=== PATIENT | female | born 1965 | race Caucasian/White ===

== ENCOUNTER 2017-04-27 08:20 | Inpatient (IN) | payer BC ==
[~2017-04-27] VITALS: Ht 152.4 cm; Wt 79.4 kg
[~2017-04-27 08:20] MED LIST: ACET500T68 PO; ASCO500T2 PO; GLUC100018 PO; INSU100I13 SQ; LANS15CA5 PO; LISI-338 PO; METF-620 PO; METF500T4 PO; PIOG15TA42 PO; RANI150C PO; SIMV10TA3 PO
[2017-04-27 08:56] LABS: BASO # 0.1 x10^3/uL (0.0-0.2); BASO % 1 % (0-3); EOS % 1 % (0-3); HEMATOCRIT 31.6 % (36.0-47.0); HEMOGLOBIN 10.4 g/dL (12.0-15.5); LYMPH # 4.3 x10^3/uL (1.0-4.8); LYMPH % 41 % (24-48); MEAN CORPUSCULAR HEMOGLOBIN 20 pg (25-35); MEAN CORPUSCULAR HGB CONC 33 g/dL (31-37); MEAN CORPUSCULAR VOLUME 61 fL (79-100); MONO % 5 % (0-9); NEUT % 53 % (31-73); PLATELET COUNT 309 x10^3/uL (140-400); RED BLOOD COUNT 5.22 x10^6/uL (3.50-5.40); RED CELL DISTRIBUTION WIDTH 15.2 % (11.5-14.5); WHITE BLOOD COUNT 10.7 x10^3/uL (4.0-11.0)
[2017-04-27 08:58] LABS: BILIRUBIN,URINE NEGATIVE (NEG); GLUCOSE,URINE NEGATIVE (NEG); NITRITE,URINE NEGATIVE (NEG); PH,URINE 6.5; PROTEIN,URINE NEGATIVE (NEG-TRACE)
[2017-04-27] MEDS ORDERED: ONDANSETRON PF 4 MG/2 ML VIAL. IV ONE ×2 (09:00→10:30)
[2017-04-27] MEDS ORDERED: fentaNYL PF VIAL 100 MCG/2 ML VIAL IV ONE (09:00)
--- NOTE | 2017-04-27 09:01 | EKG ---
[facility] [address] [place] [address] Test Date: 2017-04-27 Test Time: 08:42:48 Pat Name: SCOOTER AUGUSTIN Department: Room: Gender: F Manager In Home: : 1965 Requested By: BONNIE CASTILLO Order Number: [id number] Reading MD: Measurements Intervals [place] Rate: 61 P: 31 HI: 150 QRS: 47 QRSD: 70 T: 16 QT: 400 QTc: 404 Interpretive Statements SINUS RHYTHM RI6.01 Unconfirmed report No previous ECG available for comparison
[2017-04-27 09:03] LABS: CREATININE 0.9 mg/dL (0.6-1.0); POTASSIUM 4.2 mmol/L (3.5-5.1)
[2017-04-27 09:09] LABS: ALBUMIN 4.2 g/dL (3.4-5.0); ALBUMIN/GLOBULIN RATIO 1.1 (1.0-1.7); TOTAL BILIRUBIN 0.4 mg/dL (0.2-1.0)
[2017-04-27 09:26] LABS: BACTERIA,URINE FEW /HPF (0-FEW); RBC,URINE RARE /HPF (0-2); SQUAMOUS EPITHELIAL CELL,UR FEW /LPF; WBC,URINE OCC /HPF (0-4)
[2017-04-27 10:19] LABS: HYPOCHROMIA MARKED; MICROCYTOSIS MARKED; PLT ESTIMATE ADEQUATE (ADEQUATE)
--- NOTE | 2017-04-27 11:57 | ACF ---
Admit Criteria Forms Admit Criteria Forms Admit Criteria Forms ABDOMINAL PAIN Clinical Indications for Admission to Inpatient Care (Place 'X' for any and all applicable criteria): Admission is indicated for ANY ONE of the following(1)(2)(3)(4)(5): [X]I. Inpatient admission required rather than observation care (Also use Abdominal Pain: Observation Care, as appropriate) because of ANY ONE of the following: [X ]a) Severe pain requiring acute inpatient management [ ]b) Identification of etiology/finding that requires inpatient care (eg, aortic dissection, free air) [ ]c) Absent bowel sounds with complete ileus(6) [ ]d) Suspected toxic megacolon [ ]e) Severe electrolyte abnormalities requiring inpatient care [ ]f) High fever or infection requiring inpatient admission as indicated by ANY ONE of following(7)(8): [ ] i) Appropriate outpatient or observational care antimicrobial treatment unavailable, not effective, or not feasible [ ] ii) Documented bacteremia [ ] iii) Temperature > 104.9 degrees F (oral) [ ] iv) T >103.1 F (oral) or < 96.8 F(rectal) that does not respond to all emergency treatment measures [ ]g) Signs of intestinal obstruction [B] [ ]h) Hemodynamic instability [ ]i) IV fluid to replace significant ongoing losses (greater than 3 L/m2 per day) (12)(13) [ ]j) Percutaneous or open drainage (eg, abscess, biliary tract ) procedures [ ]k) Parenteral nutrition regimen that must be implemented on inpatient basis [ ]l) Other condition,treatment or monitoring requiring inpatient admission. [ ]II. Peritoneal signs present [ ]III. Surgery needed that cannot be performed on an ambulatory basis. [ ]IV. Evaluation requires patient to not eat or drink for extended period ( eg, more than 24 hours). [ ]V. Contraindications and/or Inappropriate clinical situations for Observational Care in patients with abdominal pain, when ANY ONE of the following is required: [ ]a) Thorough evaluation is required to prevent catastrophic events due to delays in diagnosing (e.g.Mesenteric ischemia) 1,3 [ ]b) Patient with severe pathology or with chronic symptoms unlikely to improve in the ED stay (3) [ ]. General contraindications and/or Inappropriate clinical situations for Observational Care in patients with abdominal pain, when ANY ONE of the following is required: [ ]a) Prediction of prolongation of LOS based on ANY ONE of the following may be considered as a contraindication for observational care 2, 3, 4, 5, 6, 7, 8, 9, 10, 11 [ ]i) Age > 65 yrs. [ ]ii) Patient arriving by ambulance [ ]iii) Patient with high acuity [ ]iv) Patient requiring vital sign monitoring [ ]v) Patient on IV medication [ ]b) Systolic blood pressures 180mmHg 3,12 [ ]c) Patient with altered mental status including delirium and other alteration of consciousness, (3) [ ]d) Patient whose discharge disposition will be to a shelter home or rehabilitation home should not be managed in Emergency Department Observation Unit. CMS rule requires 3 days hospital stay before such placement.3,13 [ ]e) Patient with failure to thrive due to broad array of etiologies 3,16,17 [ ]f) Inability to ambulate 3,14 Extended stay beyond goal length of stay may be needed for(2)(3): [ ]a) Persistent abdominal pain with suspected intra-abdominal process [ ]b) Diagnosed condition requiring continued stay (e.g., pancreatitis, complicated diverticulitis) [ ]c) Surgery (e.g., colectomy) The original [employer] content created by [employer] has been revised. The portions of the content which have been revised are identified through the use of italic text or in bold, and [facility] has neither reviewed nor approved the modified material.All other unmodified content is copyright [employer]. Please see references footnoted in the original [employer] edition 2016 JUAN ROLLE Apr 27, 2017 11:56
[2017-04-27] MEDS ORDERED: METOCLOPRAMIDE HCL 10 MG/2 ML VIAL. IV ONE (12:00)
[2017-04-27] MEDS ORDERED: ONDANSETRON PF 4 MG/2 ML VIAL. IV PRN (12:00)
--- NOTE | 2017-04-27 12:16 | PHYS DOC ---
Past Medical History Past Medical History: Anemia, Arthritis, Diabetes-Type II Additional Past Medical Histor: MAP-DOT DYSTROPHY,ANDRES BRANDTS DX, THALASSEMIA Past Surgical History: , Hysterectomy, Tubal ligation Additional Past Surgical Histo: LAPAROSCOPY Alcohol Use: None Drug Use: None Adult General Chief Complaint Chief Complaint: ABDOMINAL PAIN HPI HPI Patient is a 52 year old female with history of diabetes who presents with chronic intermittent abdominal pain for the past several weeks. Epigastric pain is described as, intermittent lasting for 30 minutes to 2 hours. Radiates to right upper quadrant and right shoulder blade. So she with nausea and vomiting is worse with eating. She took Tylenol this morning with limited relief.. Patient was evaluated in this ED and admitted to this hospital 2 months ago for similar complaints. At that patient, the patient had extensive cardiac workup and gallbladder ultrasound which were negative. Patient has since been increased with a emesis. She denies fever chills, sweats, bloody emesis or constipation diarrhea or bloody stools. No flank pain, urinary frequency and urgency. Other acute symptoms or complaints. Patient was directed by her primary care physician's office to go to the ED morning for further evaluation. Patient accompanied at bedside by spouse. Review of Systems Review of Systems ROS as per HPI. Current Medications Current Medications Current Medications Medications (Trade) Dose Ordered Sig/Ernesto Start Time Stop Time Status Last Admin Dose Admin Fentanyl Citrate (Fentanyl 2ml Vial) 25 mcg 1X ONCE 04/27/17 09:00 04/27/17 09:01 DC 04/27/17 09:16 25 MCG Ondansetron HCl (Zofran) 8 mg 1X ONCE 04/27/17 10:30 04/27/17 10:31 DC 04/27/17 10:29 8 MG Allergies Allergies Allergies Coded Allergies Type Severity Reaction Last Updated Verified Sulfa (Sulfonamide Antibiotics) Allergy Unknown "i get hives and throat swells shut" 01/20/14 Yes amoxicillin Allergy Unknown n/v 01/20/14 Yes clavulanic acid Allergy Unknown n/v 01/20/14 Yes Uncoded Allergies Type Severity Reaction Last Updated Verified WASP Allergy Mild 01/20/14 Physical Exam Physical Exam Constitutional: Well developed, well nourished, no acute distress, non-toxic appearance. [] HENT: Normocephalic, atraumatic, bilateral external ears normal, oropharynx moist, no oral exudates, nose normal. [] Eyes: PERRLA, EOMI, conjunctiva normal, no discharge. [] Neck: Normal range of motion, no tenderness, supple, no stridor. [] Cardiovascular:Heart rate regular rhythm, no murmur [] Lungs & Thorax: Bilateral breath sounds clear to auscultation [] Abdomen: Bowel sounds normal, soft, epigastric pain, tenderness.. [] Skin: Warm, dry, no erythema, no rash. [] Back: No tenderness, no CVA tenderness. [] Extremities: No tenderness, no cyanosis, no clubbing, ROM intact, no edema. [] Neurologic: Alert and oriented X 3, normal motor function, normal sensory function, no focal deficits noted. [] Psychologic: Affect normal, judgement normal, mood normal. [] Current Patient Data Vital Signs Vital Signs Date Time Temp Pulse Resp B/P (MAP) Pulse Ox O2 Delivery O2 Flow Rate FiO2 04/27/17 10:29 63 20 107/63 (78) 99 04/27/17 08:46 98.0 Room Air 98.0 Lab Values Laboratory Tests Test 04/27/17 08:30 04/27/17 08:45 Urine Collection Type Void Urine Color Yellow Urine Clarity Clear Urine pH 6.5 Urine Specific [place] 1.010 Urine Protein Negative mg/dL (NEG-TRACE) Urine Glucose (UA) Negative mg/dL (NEG) Urine Ketones (Stick) Negative mg/dL (NEG) Urine Blood Negative (NEG) Urine Nitrite Negative (NEG) Urine Bilirubin Negative (NEG) Urine Urobilinogen Dipstick 1.0 mg/dL (0.2 mg/dL) Urine Leukocyte Esterase Trace (NEG) Urine RBC Rare /HPF (0-2) Urine WBC Occ /HPF (0-4) Urine Squamous Epithelial Cells Few /LPF Urine Bacteria Few /HPF (0-FEW) White Blood Count 10.7 x10^3/uL (4.0-11.0) Red Blood Count 5.22 x10^6/uL (3.50-5.40) Hemoglobin 10.4 g/dL (12.0-15.5) L Hematocrit 31.6 % (36.0-47.0) L Mean Corpuscular Volume 61 fL (79-100) L Mean Corpuscular Hemoglobin 20 pg (25-35) L Mean Corpuscular Hemoglobin Concent 33 g/dL (31-37) Red Cell Distribution Width 15.2 % (11.5-14.5) H Platelet Count 309 x10^3/uL (140-400) Neutrophils (%) (Auto) 53 % (31-73) Lymphocytes (%) (Auto) 41 % (24-48) Monocytes (%) (Auto) 5 % (0-9) Eosinophils (%) (Auto) 1 % (0-3) Basophils (%) (Auto) 1 % (0-3) Neutrophils # (Auto) 5.7 x10^3uL (1.8-7.7) Lymphocytes # (Auto) 4.3 x10^3/uL (1.0-4.8) Monocytes # (Auto) 0.5 x10^3/uL (0.0-1.1) Eosinophils # (Auto) 0.1 x10^3/uL (0.0-0.7) Basophils # (Auto) 0.1 x10^3/uL (0.0-0.2) Platelet Estimate Adequate (ADEQUATE) Hypochromasia Marked Microcytosis Marked Sodium Level 141 mmol/L (136-145) Potassium Level 4.2 mmol/L (3.5-5.1) Chloride Level 103 mmol/L (98-107) Carbon Dioxide Level 30 mmol/L (21-32) Anion Gap 8 (6-14) Blood Urea Nitrogen 14 mg/dL (7-20) Creatinine 0.9 mg/dL (0.6-1.0) Estimated GFR (Cockcroft-Gault) 66.0 BUN/Creatinine Ratio 16 (6-20) Glucose Level 179 mg/dL (70-99) H Calcium Level 9.0 mg/dL (8.5-10.1) Total Bilirubin 0.4 mg/dL (0.2-1.0) Aspartate Amino Transferase (AST) 21 U/L (15-37) Alanine Aminotransferase (ALT) 41 U/L (14-59) Alkaline Phosphatase 80 U/L (46-116) Total Protein 8.0 g/dL (6.4-8.2) Albumin 4.2 g/dL (3.4-5.0) Albumin/Globulin Ratio 1.1 (1.0-1.7) Lipase 114 U/L (73-393) Laboratory Tests 04/27/17 08:45 Laboratory Tests 04/27/17 08:45 EKG EKG [] Radiology/Procedures Radiology/Procedures [] Course & Med Decision Making Course & Med Decision Making Pertinent Labs and Imaging studies reviewed. (See chart for details) [Patient with counter written progressive abdominal pain. Lab work reviewed and are nondiagnostic. Case reviewed in detail with Dr. Maritza Coleman. Recommendations for hospital admission, I discussed and and GI consult. Courtesy bridge orders provided.] Dragon Disclaimer Dragon Disclaimer This electronic medical record was generated, in whole or in part, using a voice recognition dictation system. Departure Departure Disposition: 09 ADMITTED INPATIENT Admitting Physician: Maritza Coleman Condition: STABLE Referrals: MARITZA COLEMAN MD (PCP) BONNIE CASTILLO DO Apr 27, 2017 12:16
[2017-04-27 12:45] VITALS: BP 109/69
--- NOTE | 2017-04-27 13:29 | PDOC2 ---
GI CONSULT Reason For Consult: Epigastric pain HPI: HPI: 52 y/o female w/ a 2 year h/o abd pain. Right-sided (RLQ) "squeezing" radiating to periumbilical region into chest. Worse after eating, names dairy, peaches, and peanut butter. Did not occur daily. Was started on lansoprazole 15mg QD which did improve heartburn and gas (w/ Gas-X), but no change in pain. Was also admitted w/ chest pain, cardiac etiology ruled out, lansoprazole increased to 30mg. Had US last month (as below), planned for PIPIDA as outpt tomorrow. Pain was much worse yesterday w/ radiation ("stabbing") into right shoulder. Some nausea and retching, also vomiting bile. Also has diarrhea attributed to metformin; however, this has also been worse recently. 5-6 loose stools daily, often after eating. No previous EGD or colonoscopy. Saw Dr. Jarquin at age 51 for screening colonoscopy, was advised to see hematology to confirm VWD diagnosis prior to procedure. (She underwent hysterectomy for menorrhagia; at the same time her daughter was diagnosed w/ VDW. She had labs which were "messed up twice," so the diagnosis was suspected but never confirmed.) She was referred to a access rep but due to insurance changes did not keep this appointment. Denies bleeding. Admitted through ER, labs as below, plans for PIPIDA this afternoon. PMH: PMH: DM, HTN, thalassemia, ?von Willebrand's, OA, vertigo, , tubal ligation , hysterectomy FH: Family History: Cancer (breast, stomach - aunts), Other (diverticulitis - mother, sister; liver problems/alcoholism - father) Social History: Smoke: No ALCOHOL: none Drugs: None ROS: GEN: +chills HEENT: Denies blurred vision, sore throat CV: +chest pain RESP: Denies shortness of air, cough GI: Per HPI : Denies hematuria, dysuria ENDO: Denies weight changes NEURO: Denies confusion, dizziness MSK: +arthritis SKIN: Denies jaundice, pruritus Vitals: Vitals: Vital Signs Date Time Temp Pulse Resp B/P (MAP) Pulse Ox O2 Delivery O2 Flow Rate FiO2 04/27/17 12:00 87 16 130/93 (105) 97 Room Air 04/27/17 08:46 98.0 98.0 Labs: Labs: Laboratory Tests Test 04/27/17 08:30 04/27/17 08:45 Urine Collection Type Void Urine Color Yellow Urine Clarity Clear Urine pH 6.5 Urine Specific [place] 1.010 Urine Protein Negative mg/dL (NEG-TRACE) Urine Glucose (UA) Negative mg/dL (NEG) Urine Ketones (Stick) Negative mg/dL (NEG) Urine Blood Negative (NEG) Urine Nitrite Negative (NEG) Urine Bilirubin Negative (NEG) Urine Urobilinogen Dipstick 1.0 mg/dL (0.2 mg/dL) Urine Leukocyte Esterase Trace (NEG) Urine RBC Rare /HPF (0-2) Urine WBC Occ /HPF (0-4) Urine Squamous Epithelial Cells Few /LPF Urine Bacteria Few /HPF (0-FEW) White Blood Count 10.7 x10^3/uL (4.0-11.0) Red Blood Count 5.22 x10^6/uL (3.50-5.40) Hemoglobin 10.4 g/dL (12.0-15.5) Hematocrit 31.6 % (36.0-47.0) Mean Corpuscular Volume 61 fL (79-100) Mean Corpuscular Hemoglobin 20 pg (25-35) Mean Corpuscular Hemoglobin Concent 33 g/dL (31-37) Red Cell Distribution Width 15.2 % (11.5-14.5) Platelet Count 309 x10^3/uL (140-400) Neutrophils (%) (Auto) 53 % (31-73) Lymphocytes (%) (Auto) 41 % (24-48) Monocytes (%) (Auto) 5 % (0-9) Eosinophils (%) (Auto) 1 % (0-3) Basophils (%) (Auto) 1 % (0-3) Neutrophils # (Auto) 5.7 x10^3uL (1.8-7.7) Lymphocytes # (Auto) 4.3 x10^3/uL (1.0-4.8) Monocytes # (Auto) 0.5 x10^3/uL (0.0-1.1) Eosinophils # (Auto) 0.1 x10^3/uL (0.0-0.7) Basophils # (Auto) 0.1 x10^3/uL (0.0-0.2) Platelet Estimate Adequate (ADEQUATE) Hypochromasia Marked Microcytosis Marked Sodium Level 141 mmol/L (136-145) Potassium Level 4.2 mmol/L (3.5-5.1) Chloride Level 103 mmol/L (98-107) Carbon Dioxide Level 30 mmol/L (21-32) Anion Gap 8 (6-14) Blood Urea Nitrogen 14 mg/dL (7-20) Creatinine 0.9 mg/dL (0.6-1.0) Estimated GFR (Cockcroft-Gault) 66.0 BUN/Creatinine Ratio 16 (6-20) Glucose Level 179 mg/dL (70-99) Calcium Level 9.0 mg/dL (8.5-10.1) Total Bilirubin 0.4 mg/dL (0.2-1.0) Aspartate Amino Transf (AST/SGOT) 21 U/L (15-37) Alanine Aminotransferase (ALT/SGPT) 41 U/L (14-59) Alkaline Phosphatase 80 U/L (46-116) Total Protein 8.0 g/dL (6.4-8.2) Albumin 4.2 g/dL (3.4-5.0) Albumin/Globulin Ratio 1.1 (1.0-1.7) Lipase 114 U/L (73-393) Allergies: Coded Allergies: Sulfa (Sulfonamide Antibiotics) (Verified Allergy, Unknown, "i get hives and throat swells shut", 01/20/14) amoxicillin (Verified Allergy, Unknown, n/v, 01/20/14) clavulanic acid (Verified Allergy, Unknown, n/v, 01/20/14) Uncoded Allergies: WASP (Allergy, Mild, 01/20/14) Medications: Current Medications Medications (Trade) Dose Ordered Sig/Ernesto Route PRN Reason Start Time Stop Time Status Last Admin Dose Admin Fentanyl Citrate (Fentanyl 2ml Vial) 25 mcg 1X ONCE IV 04/27/17 09:00 04/27/17 09:01 DC 04/27/17 09:16 Ondansetron HCl (Zofran) 4 mg 1X ONCE IV 04/27/17 09:00 04/27/17 09:01 DC 04/27/17 09:16 Ondansetron HCl (Zofran) 8 mg 1X ONCE IV 04/27/17 10:30 04/27/17 10:31 DC 04/27/17 10:29 Imaging: Imaging: US 02/2017 IMPRESSION: 1. No sonographic evidence of cholelithiasis. 2. Mild common hepatic duct dilatation of uncertain significance. Correlation with laboratory data is suggested. CT scanning may be useful for evaluation of the distal common duct and pancreas, if clinically indicated. 3. Increased hepatic echogenicity suggesting fatty change. MPI 2014 Conclusion 1. No electrocardiographic changes suggestive of myocardial ischemia oncological stress. 2. No perfusion defects to suggest myocardial ischemia or scar. 3. Normal wall motion and wall thickening with an ejection fraction of more than 80%. 4. Scan indicates low risk for future cardiac events. PE: GEN: NAD HEENT: Atraumatic, PERRL LUNGS: CTAB HEART: RRR ABD: BS quiet, RLQ tenderness to periumbilical region, less so epigastrium and into chest EXTREMITY: No edema SKIN: No rashes, no jaundice NEURO/PSYCH: A & O 3 A/P: A/P: Chronic right-sided abd pain -worse yesterday w/ n/v -radiates to epigastrium, chest, shoulder -worse after eating GERD -improved w/ PPI -no previous EGD Diarrhea -attributed to metformin, possibly worse recently CRC screen -no previous colonoscopy ?VWD -- Await PIPIDA results. Will ask hematology to see re: ?VWD, possible need for procedure (EGD/colon or cholecystectomy) clearance. STEPHANIE RIVER Apr 27, 2017 13:29
[2017-04-27] MEDS: METOCLOPRAMIDE HCL 10 MG/2 ML VIAL. IV SCH ×2 (14:00→22:00)
[2017-04-27] MEDS ORDERED: SINCALIDE 1.61 MCG in IV NORMAL SALINE 50ML 30 ML IV ONE (14:00)
--- NOTE | 2017-04-27 15:28 | RAD ---
Hepatobiliary scan 04/27/2017 Indication: Chronic epigastric pain x3 years. Nausea and vomiting x3 weeks. Comparison study: Abdominal ultrasound March 02, 2017 Discussion: Imaging over the abdomen was performed following the administration of 5.5 mCi of technetium 99m labeled Choletec. Following filling of the gallbladder 1.61 mcg of Kinevac was administered intravenously and imaging of the gallbladder continued. There is prompt radiotracer clearance from the blood pool, with expected hepatic uptake. The gallbladder is visualized after approximately 5 to 10 minutes. Following the administration of Kinevac gallbladder ejection fraction is measured at 91.2% which is within normal limits. Expected filling of the small bowel is also noted. Impression: Normal exam. No evidence of cholecystitis is identified. Gallbladder ejection fraction is normal.
[2017-04-27] MEDS ORDERED: SIMETHICONE 80 MG TAB.CHEW PO PRN (15:45)
[2017-04-27] MEDS: PANTOPRAZOLE 40 MG TABLET.DR. PO SCH (17:08)
[2017-04-27] MEDS: IV NORMAL SALINE 1000ML BAG 1,000 ML IV SCH ×2 (17:08→19:46)
--- NOTE | 2017-04-27 17:19 | PDOC ---
Provider Note Provider Note Hem-Onc consult Labs ordered for vWD evaluation. See dictation [id number] TRAN URENA MD Apr 27, 2017 17:19
[2017-04-27 17:54] LABS: % SAT IRON 28 % (15-34); IRON,SERUM 99 ug/dL (50-170)
[2017-04-27] MEDS ORDERED: MECL12.52 PO (18:16)
[2017-04-27 19:00] VITALS: BP 101/62
[2017-04-27] MEDS ORDERED: INSU100I13 SQ (19:44)
[2017-04-27] MEDS ORDERED: LISINOPRIL 5 MG TABLET. PO SCH (22:15)
[2017-04-27] MEDS ORDERED: INSULIN DETEMIR 300 UNITS/3 ML INSULN.PEN. SQ ONE (22:45)
[2017-04-27 23:00] VITALS: BP 106/62
--- NOTE | 2017-04-27 23:38 | CONS ---
DATE OF CONSULTATION: 04/27/2017 REQUESTING PHYSICIAN: Dr. Shashi Jarquin. REASON FOR CONSULTATION: Evaluate for von Willebrand disease. HISTORY OF PRESENT ILLNESS: The patient is a 52-year-old female who reports having had epistaxis and easy bruisability since her childhood. She also had a history of menorrhagia requiring hysterectomy in 2009. She reports that her daughter was diagnosed with von Willebrand disease in 2009. The patient also was suspected of having von Willebrand disease, but it was not definitively diagnosed. She did have a hysterectomy in 2009, complicated by excessive bleeding requiring blood transfusion. Prior to that, she has had a history of section that also required blood transfusion due to excessive blood loss. She mentions that she tends to bleed easily after phlebotomies for lab work. She has also noted excessive blood loss after wisdom tooth extraction. She is now admitted to [facility] on 04/27/2017 with complaints of right upper quadrant abdominal pain. Ultrasound in 02/2017 did not reveal any evidence of cholelithiasis. GI was consulted. Differential diagnosis was thought to be chronic cholecystitis. HIDA scan was ordered. PAST MEDICAL HISTORY: Diabetes mellitus, hypertension, thalassemia, osteoarthritis, vertigo, section, tuber ligation, hysterectomy. FAMILY HISTORY: Positive for breast and stomach cancer. Daughter has von Willebrand disease. SOCIAL HISTORY: No smoking or alcohol abuse. REVIEW OF SYSTEMS: A 12-point review of systems was performed. Pertinent positives are mentioned in the history of present illness. Rest of the system review is negative. PHYSICAL EXAMINATION: GENERAL APPEARANCE: The patient is a 52-year-old female who is in no acute cardiorespiratory distress. VITAL SIGNS: Blood pressure 109/69, temperature 97.7. HEENT: Head: Atraumatic, normocephalic. Eyes: No icterus. NECK: Supple. CHEST: Bilaterally symmetrical. No crepitations or rhonchi heard. HEART: S1, S2 normal. ABDOMEN: Soft, tenderness in the right upper quadrant noted. CENTRAL NERVOUS SYSTEM: No focal deficits. LYMPHATICS: No lymphadenopathy. SKIN: No rashes. PSYCHOLOGIC: Mood and affect are appropriate. MUSCULOSKELETAL: No joint effusions. LABORATORY DATA: From 04/27/2017, WBC 10.7, hemoglobin 10.4, MCV 61, platelet count 309. Creatinine 0.9, total bilirubin 0.4, AST 21, ALT 41, alkaline phosphatase 80, total protein 8, albumin 4.2. IMPRESSION AND PLAN: 1. Bleeding disorder per the patient. She mentions that she was told in 2009 that she probably has von Willebrand disease, but a definite diagnosis was not made. She does have a history of easy bruisability, history of menorrhagia requiring hysterectomy in 2009, which resulted in excessive blood loss requiring blood transfusions. She also has a history of excessive blood loss after wisdom tooth extraction and after a section. In addition, her daughter has been diagnosed with von Willebrand disease in 2009. All the above findings are concerning for von Willebrand disease. I will go ahead and initiate workup with PT, PTT, von Willebrand disease factor antigen, factor 8 activity, and von Willebrand ristocetin cofactor activity. I discussed in detail with the patient regarding the need for further evaluation to confirm diagnosis and she understands and agrees with the plan. 2. Right upper quadrant abdominal pain. Appreciate GI consultation. Chronic cholelithiasis is suspected. TRAN URENA MD DR: PAT/nts JOB#: [id number] / [id number] SHASHI Riojas MD
[2017-04-27] MEDS ORDERED: POTASSIUM CL 20MEQ D5-0.45NACL 1,000 ML IV SCH (23:45)
[2017-04-28 02:24] LABS: INR 1.1 (0.8-1.1); PROTHROMBIN TIME PATIENT 13.4 SEC (11.7-14.0)
[2017-04-28 03:00] VITALS: BP 98/68
[2017-04-28] MEDS: IV NORMAL SALINE 1000ML BAG 1,000 ML IV SCH (03:46)
[2017-04-28] MEDS: METOCLOPRAMIDE HCL 10 MG/2 ML VIAL. IV SCH ×2 (06:00→13:48)
[2017-04-28 07:00] VITALS: BP 124/73
[2017-04-28] MEDS: PANTOPRAZOLE 40 MG TABLET.DR. PO SCH (07:30)
--- NOTE | 2017-04-28 08:59 | PDOC ---
PROGRESS NOTES Subjective Subjective c/c - eval for bleeding disorder ROS - abd pain is better Objective Objective Vital Signs Date Time Temp Pulse Resp B/P (MAP) Pulse Ox O2 Delivery O2 Flow Rate FiO2 04/28/17 07:00 97.9 69 20 124/73 (90) 100 Room Air 97.9 Intake and Output 04/28/17 07:00 Intake Total 240 ml Balance 240 ml Intake Oral 240 ml # Voids 2 Physical Exam Heart: Normal S1, Normal S2 General: Alert, Oriented X3 Lungs: Clear to auscultation Neuro: Normal speech Psych/Mental Status: Mental status NL Assessment Assessment IMPRESSION AND PLAN: 1. Bleeding disorder per the patient. She mentions that she was told in 2009 that she probably has von Willebrand disease, but a definite diagnosis was not made. She does have a history of easy bruisability, history of menorrhagia requiring hysterectomy in 2009, which resulted in excessive blood loss requiring blood transfusions. She also has a history of excessive blood loss after wisdom tooth extraction and after a section. In addition, her daughter has been diagnosed with von Willebrand disease in 2009. All the above findings are concerning for von Willebrand disease. PT,PTT and platelets are normal. I ordered von Willebrand disease factor antigen, factor 8 activity, and von Willebrand ristocetin cofactor activity. I discussed in detail with the patient regarding the need for further evaluation to confirm diagnosis and she understands and agrees with the plan. 2. Right upper quadrant abdominal pain. Appreciate GI consultation. Chronic cholelithiasis is suspected, but HIDA scan is normal. Comment Review of Relevant I have reviewed the following items francois (where applicable) has been applied. Labs Laboratory Tests Test 04/27/17 08:30 04/27/17 08:45 04/27/17 16:27 04/28/17 00:04 Urine Collection Type Void Urine Color Yellow Urine Clarity Clear Urine pH 6.5 Urine Specific [place] 1.010 Urine Protein Negative mg/dL (NEG-TRACE) Urine Glucose (UA) Negative mg/dL (NEG) Urine Ketones (Stick) Negative mg/dL (NEG) Urine Blood Negative (NEG) Urine Nitrite Negative (NEG) Urine Bilirubin Negative (NEG) Urine Urobilinogen Dipstick 1.0 mg/dL (0.2 mg/dL) Urine Leukocyte Esterase Trace (NEG) Urine RBC Rare /HPF (0-2) Urine WBC Occ /HPF (0-4) Urine Squamous Epithelial Cells Few /LPF Urine Bacteria Few /HPF (0-FEW) White Blood Count 10.7 x10^3/uL (4.0-11.0) Red Blood Count 5.22 x10^6/uL (3.50-5.40) Hemoglobin 10.4 g/dL (12.0-15.5) Hematocrit 31.6 % (36.0-47.0) Mean Corpuscular Volume 61 fL (79-100) Mean Corpuscular Hemoglobin 20 pg (25-35) Mean Corpuscular Hemoglobin Concent 33 g/dL (31-37) Red Cell Distribution Width 15.2 % (11.5-14.5) Platelet Count 309 x10^3/uL (140-400) Neutrophils (%) (Auto) 53 % (31-73) Lymphocytes (%) (Auto) 41 % (24-48) Monocytes (%) (Auto) 5 % (0-9) Eosinophils (%) (Auto) 1 % (0-3) Basophils (%) (Auto) 1 % (0-3) Neutrophils # (Auto) 5.7 x10^3uL (1.8-7.7) Lymphocytes # (Auto) 4.3 x10^3/uL (1.0-4.8) Monocytes # (Auto) 0.5 x10^3/uL (0.0-1.1) Eosinophils # (Auto) 0.1 x10^3/uL (0.0-0.7) Basophils # (Auto) 0.1 x10^3/uL (0.0-0.2) Platelet Estimate Adequate (ADEQUATE) Hypochromasia Marked Microcytosis Marked Reticulocyte Count (auto) 1.9 % (0.5-2.5) Sodium Level 141 mmol/L (136-145) Potassium Level 4.2 mmol/L (3.5-5.1) Chloride Level 103 mmol/L (98-107) Carbon Dioxide Level 30 mmol/L (21-32) Anion Gap 8 (6-14) Blood Urea Nitrogen 14 mg/dL (7-20) Creatinine 0.9 mg/dL (0.6-1.0) Estimated GFR (Cockcroft-Gault) 66.0 BUN/Creatinine Ratio 16 (6-20) Glucose Level 179 mg/dL (70-99) Calcium Level 9.0 mg/dL (8.5-10.1) Iron Level 99 ug/dL (50-170) Total Iron Binding Capacity 348 ug/dL (250-450) Iron Saturation 28 % (15-34) Ferritin 83 ng/mL (8-252) Total Bilirubin 0.4 mg/dL (0.2-1.0) Aspartate Amino Transf (AST/SGOT) 21 U/L (15-37) Alanine Aminotransferase (ALT/SGPT) 41 U/L (14-59) Alkaline Phosphatase 80 U/L (46-116) Total Protein 8.0 g/dL (6.4-8.2) Albumin 4.2 g/dL (3.4-5.0) Albumin/Globulin Ratio 1.1 (1.0-1.7) Lipase 114 U/L (73-393) Glucose (Fingerstick) 191 mg/dL (70-99) Prothrombin Time 13.4 SEC (11.7-14.0) Prothromb Time International Ratio 1.1 (0.8-1.1) Activated Partial Thromboplast Time 36 SEC (24-38) Test 04/28/17 07:36 Glucose (Fingerstick) 166 mg/dL (70-99) Laboratory Tests Test 04/27/17 16:27 04/28/17 00:04 04/28/17 07:36 Glucose (Fingerstick) 191 mg/dL (70-99) 166 mg/dL (70-99) Prothrombin Time 13.4 SEC (11.7-14.0) Prothromb Time International Ratio 1.1 (0.8-1.1) Activated Partial Thromboplast Time 36 SEC (24-38) Medications Current Medications Fentanyl Citrate (Fentanyl 2ml Vial) 25 mcg 1X ONCE IV Last administered on 09:16; Start 04/27/17 at 09:00; Stop 04/27/17 at 09:01; Status DC Ondansetron HCl (Zofran) 4 mg 1X ONCE IV Last administered on 04/27/17 09:16 ; Start 04/27/17 at 09:00; Stop 04/27/17 at 09:01; Status DC Ondansetron HCl (Zofran) 8 mg 1X ONCE IV Last administered on 04/27/17 10:29 ; Start 04/27/17 at 10:30; Stop 04/27/17 at 10:31; Status DC Ondansetron HCl (Zofran) 4 mg PRN Q8HRS PRN IV NAUSEA/VOMITING; Start 04/27/17 at 12:00; Stop 04/28/17 at 11:59 Sodium Chloride 1,000 ml @ 125 mls/hr Q8H IV Last administered on 04/27/17 17 :08; Start 04/27/17 at 11:46; Stop 04/28/17 at 11:45 Metoclopramide HCl (Reglan) 10 mg Q8HRS IV ; Start 04/27/17 at 14:00 Metoclopramide HCl (Reglan) 10 mg 1X ONCE IV Last administered on 04/27/17 17 :07; Start 04/27/17 at 12:00; Stop 04/27/17 at 12:02; Status DC Sincalide 1.61 mcg/Sodium Chloride 30 ml @ 120 mls/hr 1X ONCE IV Last administered on 04/27/17 14:00; Start 04/27/17 at 14:00; Stop 04/27/17 at 14:14 ; Status DC Pantoprazole Sodium (Protonix) 40 mg DAILYAC PO Last administered on 04/27/17 17:08; Start 04/27/17 at 16:30 Simethicone (Gas-X) 80 mg PRN AFTMEALHC PRN PO GAS / BLOATING; Start 04/27/17 at 15:45 Lisinopril (Prinivil) 5 mg HS PO ; Start 04/27/17 at 22:15 Insulin Detemir (Levemir) 46 units QHS SQ ; Start 04/28/17 at 22:15 Insulin Detemir (Levemir) 46 units 1X ONCE SQ Last administered on 04/27/17 23:09; Start 04/27/17 at 22:45; Stop 04/27/17 at 22:46; Status DC Potassium Chloride/Dextrose/ Sod Cl 1,000 ml @ 80 mls/hr [id number] IV Last administered on 04/28/17 01:11; Start 04/27/17 at 23:45 Metformin HCl (Glucophage) 500 mg DAILYWLUN PO ; Start 04/28/17 at 12:00 Metformin HCl (Glucophage) 1,000 mg HS PO ; Start 04/28/17 at 21:00 Pioglitazone HCl (Actos) 15 mg DAILY PO ; Start 04/28/17 at 09:00 Insulin Detemir (Levemir) 46 units QHS SQ ; Start 04/28/17 at 21:00 Pantoprazole Sodium (Protonix) 40 mg DAILYAC PO ; Start 04/28/17 at 09:30 Active Scripts Active Reported Lantus Solostar (Insulin Glargine,Hum.rec.anlog) 100 Unit/1 Ml Insuln.pen 46 Unit SQ QHS Meclizine Hcl 12.5 Mg Tablet 1 Tab PO DAILY Acetaminophen 500 Mg Tablet 1 Tab PO DAILY Vitamin C (Ascorbic Acid) 500 Mg Tablet 500 Mg PO DAILY Actos (Pioglitazone Hcl) 15 Mg Tablet 1 Tab PO DAILY Lansoprazole 15 Mg Capsule.dr 15 Mg PO DAILY Metformin Hcl 500 Mg Tablet 2 Tab PO HS Metformin Hcl 1,000 Mg Tablet 500 Mg PO DAILYWLUN Lisinopril 5 Mg Tablet 1 Tab PO HS Simvastatin 10 Mg Tablet 1 Tab PO QHS Lantus Solostar (Insulin Glargine,Hum.rec.anlog) 100 Unit/1 Ml Insuln.pen 46 Unit SQ QHS Vitals/I & O Vital Sign - Last 24 Hours 04/27/17 04/27/17 04/27/17 04/27/17 09:18 10:29 12:00 12:45 Temp 97.7 97.7 Pulse 74 63 87 74 Resp 20 20 16 18 B/P (MAP) 115/70 (85) 107/63 (78) 130/93 (105) 109/69 (82) Pulse Ox 98 99 97 99 O2 Delivery Room Air Room Air 04/27/17 04/27/17 04/27/17 04/27/17 12:45 19:00 22:15 23:00 Temp 97.7 97.5 97.7 97.7 97.5 97.7 Pulse 74 71 71 73 Resp 18 18 18 B/P (MAP) 109/69 (82) 101/62 (75) 101/62 106/62 (77) Pulse Ox 99 97 96 O2 Delivery Room Air Room Air Room Air 04/28/17 04/28/17 03:00 07:00 Temp 97.5 97.9 97.5 97.9 Pulse 73 69 Resp 18 20 B/P (MAP) 98/68 (78) 124/73 (90) Pulse Ox 95 100 O2 Delivery Room Air Room Air Intake and Output 04/27/17 04/27/17 04/28/17 15:00 23:00 07:00 Intake Total 120 ml 120 ml Balance 120 ml 120 ml TRAN URENA MD Apr 28, 2017 08:59
[2017-04-28] MEDS ORDERED: PIOGLITAZONE 15 MG TABLET. PO SCH (09:00)
--- NOTE | 2017-04-28 09:11 | PDOC ---
Provider Note Provider Note [id number] MARITZA MCMILLAN MD Apr 28, 2017 09:11
[2017-04-28] MEDS ORDERED: PANTOPRAZOLE 40 MG TABLET.DR. PO SCH (09:30)
--- NOTE | 2017-04-28 10:15 | PDOC2 ---
VLADISLAV FULTON TITLE EXAMINER 04/28/17 1015: CONSULT Date of Consult Date of Consult DATE: 04/28/17 TIME: 10:10 Reason for Consult Reason for Consult: abdominal pain Referring Physician Referring Physician: Dr Coleman Identification/Chief Complaint Chief Complaint abdominal pain Problems: Source Source: Chart review, Patient History of Present Illness Reason for Visit: 2 year history of abdominal pain to RLQ, radiation to epigastric, right shoulder. Associated nausea and emesis. Aggravated by dairy. Reproduction of symptoms with HIDA yesterday. Has been worse last week or so. + diarrhea, chronic however seems worse last 1-2 weeks Past Medical History Cardiovascular: HTN, Hyperlipidemia Pulmonary: No pertinent hx CENTRAL NERVOUS SYSTEM: Vertigo GI: GERD Heme/Onc: Anemia NOS, Other Hepatobiliary: No pertinent hx Psych: No pertinent hx Musculoskeletal: Osteoarthritis Rheumatologic: No pertinent hx Infectious disease: No pertinent hx Renal/: No pertinent hx Endocrine: Diabetes Past Surgical History Past Surgical History: , Tubal Ligation, Hysterectomy Family History Family History: Stroke Social History No ALCOHOL: none Drugs: None Lives: with Family Current Medications Current Medications Current Medications Fentanyl Citrate (Fentanyl 2ml Vial) 25 mcg 1X ONCE IV Last administered on 09:16; Start 04/27/17 at 09:00; Stop 04/27/17 at 09:01; Status DC Ondansetron HCl (Zofran) 4 mg 1X ONCE IV Last administered on 04/27/17 09:16 ; Start 04/27/17 at 09:00; Stop 04/27/17 at 09:01; Status DC Ondansetron HCl (Zofran) 8 mg 1X ONCE IV Last administered on 04/27/17 10:29 ; Start 04/27/17 at 10:30; Stop 04/27/17 at 10:31; Status DC Ondansetron HCl (Zofran) 4 mg PRN Q8HRS PRN IV NAUSEA/VOMITING; Start 04/27/17 at 12:00; Stop 04/28/17 at 11:59 Sodium Chloride 1,000 ml @ 125 mls/hr Q8H IV Last administered on 04/27/17 17 :08; Start 04/27/17 at 11:46; Stop 04/28/17 at 11:45 Metoclopramide HCl (Reglan) 10 mg Q8HRS IV ; Start 04/27/17 at 14:00 Metoclopramide HCl (Reglan) 10 mg 1X ONCE IV Last administered on 04/27/17 17 :07; Start 04/27/17 at 12:00; Stop 04/27/17 at 12:02; Status DC Sincalide 1.61 mcg/Sodium Chloride 30 ml @ 120 mls/hr 1X ONCE IV Last administered on 04/27/17 14:00; Start 04/27/17 at 14:00; Stop 04/27/17 at 14:14 ; Status DC Pantoprazole Sodium (Protonix) 40 mg DAILYAC PO Last administered on 04/27/17 17:08; Start 04/27/17 at 16:30 Simethicone (Gas-X) 80 mg PRN AFTMEALHC PRN PO GAS / BLOATING; Start 04/27/17 at 15:45 Lisinopril (Prinivil) 5 mg HS PO ; Start 04/27/17 at 22:15 Insulin Detemir (Levemir) 46 units QHS SQ ; Start 04/28/17 at 22:15 Insulin Detemir (Levemir) 46 units 1X ONCE SQ Last administered on 04/27/17 23:09; Start 04/27/17 at 22:45; Stop 04/27/17 at 22:46; Status DC Potassium Chloride/Dextrose/ Sod Cl 1,000 ml @ 80 mls/hr [id number] IV Last administered on 04/28/17 01:11; Start 04/27/17 at 23:45 Metformin HCl (Glucophage) 500 mg DAILYWLUN PO ; Start 04/28/17 at 12:00 Metformin HCl (Glucophage) 1,000 mg HS PO ; Start 04/28/17 at 21:00 Pioglitazone HCl (Actos) 15 mg DAILY PO Last administered on 04/28/17 09:16; Start 04/28/17 at 09:00 Insulin Detemir (Levemir) 46 units QHS SQ ; Start 04/28/17 at 21:00 Pantoprazole Sodium (Protonix) 40 mg DAILYAC PO Last administered on 04/28/17 09:16; Start 04/28/17 at 09:30 Active Scripts Active Reported Lantus Solostar (Insulin Glargine,Hum.rec.anlog) 100 Unit/1 Ml Insuln.pen 46 Unit SQ QHS Meclizine Hcl 12.5 Mg Tablet 1 Tab PO DAILY Acetaminophen 500 Mg Tablet 1 Tab PO DAILY Vitamin C (Ascorbic Acid) 500 Mg Tablet 500 Mg PO DAILY Actos (Pioglitazone Hcl) 15 Mg Tablet 1 Tab PO DAILY Lansoprazole 15 Mg Capsule.dr 15 Mg PO DAILY Metformin Hcl 500 Mg Tablet 2 Tab PO HS Metformin Hcl 1,000 Mg Tablet 500 Mg PO DAILYWLUN Lisinopril 5 Mg Tablet 1 Tab PO HS Simvastatin 10 Mg Tablet 1 Tab PO QHS Lantus Solostar (Insulin Glargine,Hum.rec.anlog) 100 Unit/1 Ml Insuln.pen 46 Unit SQ QHS Allergies Allergies: Coded Allergies: Sulfa (Sulfonamide Antibiotics) (Verified Allergy, Unknown, "i get hives and throat swells shut", 01/20/14) amoxicillin (Verified Allergy, Unknown, n/v, 01/20/14) clavulanic acid (Verified Allergy, Unknown, n/v, 01/20/14) Uncoded Allergies: WASP (Allergy, Mild, 01/20/14) ROS General: No: Chills, Other (kika) PSYCHOLOGICAL ROS: No: Anxiety, Depression Eyes: No Blurry vision, No Double vision HEENT: No: Heacaches, Sore Throat Hematological and Lymphatic: YES: Bleeding Problems, Blood Transfusions, No: Blood Clots Respiratory: No: Cough, Shortness of breath Cardiovascular: No Chest Pain, No Palpitations Gastrointestinal: Yes Other (ee hpi) Genitourinary: No Dysuria, No Hematuria Musculoskeletal: No Joint Pain, No Muscle Pain Neurological: No Impaired Coord/balance, No Numbness/Tingling Skin: No Pruritus, No Rash Physical Exam General: Alert, Oriented X3, Cooperative, No acute distress HEENT: PERRLA, Mucous membr. moist/pink Lungs: Clear to auscultation, Normal air movement Heart: Regular rate, Normal S1, Normal S2, No murmurs Abdomen: Soft, Other (ttp RLQ) Extremities: No clubbing, No cyanosis Skin: No rashes, No breakdown Neuro: Normal speech, Sensation intact Psych/Mental Status: Mental status NL, Mood NL MUSCULOSKELETAL: No deformity, No swelling Vitals VITALS Vital Signs Date Time Temp Pulse Resp B/P (MAP) Pulse Ox O2 Delivery O2 Flow Rate FiO2 04/28/17 07:00 97.9 69 20 124/73 (90) 100 Room Air 97.9 Labs Labs Laboratory Tests Test 04/27/17 08:30 04/27/17 08:45 04/27/17 16:27 04/28/17 00:04 Urine Collection Type Void Urine Color Yellow Urine Clarity Clear Urine pH 6.5 Urine Specific [place] 1.010 Urine Protein Negative mg/dL (NEG-TRACE) Urine Glucose (UA) Negative mg/dL (NEG) Urine Ketones (Stick) Negative mg/dL (NEG) Urine Blood Negative (NEG) Urine Nitrite Negative (NEG) Urine Bilirubin Negative (NEG) Urine Urobilinogen Dipstick 1.0 mg/dL (0.2 mg/dL) Urine Leukocyte Esterase Trace (NEG) Urine RBC Rare /HPF (0-2) Urine WBC Occ /HPF (0-4) Urine Squamous Epithelial Cells Few /LPF Urine Bacteria Few /HPF (0-FEW) White Blood Count 10.7 x10^3/uL (4.0-11.0) Red Blood Count 5.22 x10^6/uL (3.50-5.40) Hemoglobin 10.4 g/dL (12.0-15.5) Hematocrit 31.6 % (36.0-47.0) Mean Corpuscular Volume 61 fL (79-100) Mean Corpuscular Hemoglobin 20 pg (25-35) Mean Corpuscular Hemoglobin Concent 33 g/dL (31-37) Red Cell Distribution Width 15.2 % (11.5-14.5) Platelet Count 309 x10^3/uL (140-400) Neutrophils (%) (Auto) 53 % (31-73) Lymphocytes (%) (Auto) 41 % (24-48) Monocytes (%) (Auto) 5 % (0-9) Eosinophils (%) (Auto) 1 % (0-3) Basophils (%) (Auto) 1 % (0-3) Neutrophils # (Auto) 5.7 x10^3uL (1.8-7.7) Lymphocytes # (Auto) 4.3 x10^3/uL (1.0-4.8) Monocytes # (Auto) 0.5 x10^3/uL (0.0-1.1) Eosinophils # (Auto) 0.1 x10^3/uL (0.0-0.7) Basophils # (Auto) 0.1 x10^3/uL (0.0-0.2) Platelet Estimate Adequate (ADEQUATE) Hypochromasia Marked Microcytosis Marked Reticulocyte Count (auto) 1.9 % (0.5-2.5) Sodium Level 141 mmol/L (136-145) Potassium Level 4.2 mmol/L (3.5-5.1) Chloride Level 103 mmol/L (98-107) Carbon Dioxide Level 30 mmol/L (21-32) Anion Gap 8 (6-14) Blood Urea Nitrogen 14 mg/dL (7-20) Creatinine 0.9 mg/dL (0.6-1.0) Estimated GFR (Cockcroft-Gault) 66.0 BUN/Creatinine Ratio 16 (6-20) Glucose Level 179 mg/dL (70-99) Calcium Level 9.0 mg/dL (8.5-10.1) Iron Level 99 ug/dL (50-170) Total Iron Binding Capacity 348 ug/dL (250-450) Iron Saturation 28 % (15-34) Ferritin 83 ng/mL (8-252) Total Bilirubin 0.4 mg/dL (0.2-1.0) Aspartate Amino Transf (AST/SGOT) 21 U/L (15-37) Alanine Aminotransferase (ALT/SGPT) 41 U/L (14-59) Alkaline Phosphatase 80 U/L (46-116) Total Protein 8.0 g/dL (6.4-8.2) Albumin 4.2 g/dL (3.4-5.0) Albumin/Globulin Ratio 1.1 (1.0-1.7) Lipase 114 U/L (73-393) Glucose (Fingerstick) 191 mg/dL (70-99) Prothrombin Time 13.4 SEC (11.7-14.0) Prothromb Time International Ratio 1.1 (0.8-1.1) Activated Partial Thromboplast Time 36 SEC (24-38) Test 04/28/17 07:36 Glucose (Fingerstick) 166 mg/dL (70-99) Laboratory Tests Test 04/27/17 16:27 04/28/17 00:04 04/28/17 07:36 Glucose (Fingerstick) 191 mg/dL (70-99) 166 mg/dL (70-99) Prothrombin Time 13.4 SEC (11.7-14.0) Prothromb Time International Ratio 1.1 (0.8-1.1) Activated Partial Thromboplast Time 36 SEC (24-38) Assessment/Plan Assessment/Plan abdominal pain, RLQ with radiation to epigastric, right shoulder --normal HIDA and US No surgical plans, GI FU recommended IVAN SANTAMARIA MD 04/28/17 1507: CONSULT Allergies Allergies: Coded Allergies: Sulfa (Sulfonamide Antibiotics) (Verified Allergy, Unknown, "i get hives and throat swells shut", 01/20/14) amoxicillin (Verified Allergy, Unknown, n/v, 01/20/14) clavulanic acid (Verified Allergy, Unknown, n/v, 01/20/14) Uncoded Allergies: WASP (Allergy, Mild, 01/20/14) Assessment/Plan Assessment/Plan pt seen, interviewed and examined agree with above no surgical recs will sign off please call if needed Thanks for consult VLADISLAV FULTON APRN Apr 28, 2017 10:15 IVAN SANTAMARIA MD Apr 28, 2017 15:07
--- NOTE | 2017-04-28 10:22 | HP ---
ADMIT DATE: 04/27/2017 CHIEF COMPLAINT: Ongoing abdominal pain. HISTORY OF PRESENT ILLNESS: A 52-year-old white female ____ has been having recurrent epigastric pain, it is seemed to be related to eating for the last 2 months. A gallbladder sonogram in February was normal and she was scheduled to have a hepatobiliary scan in 2 days, came in with increasing pain. She has not had an upper endoscopy and has no other signs of hematemesis, melena, hematochezia, fever or other symptoms. MEDICATIONS: For diabetes, last A1c was 9.2 when Actos was added then. ALLERGIES: AUGMENTIN, SULFA. SOCIAL HISTORY: and physically active, nonsmoker, nondrinker. REVIEW OF SYSTEMS: No other complaints. OBJECTIVE: ENT: All within normal limits. NECK: No masses or bruits. LUNGS: Clear. CARDIOVASCULAR: Regular rate. No irregular beat or murmur. ABDOMEN: Mildly tender in the epigastrium. No masses, megaly or nodes. No guarding. EXTREMITIES: Good pedal and radial pulses. No joint or skin lesions. NEUROLOGIC: Physiologic. ASSESSMENT: 1. Ongoing epigastric pain, it appears not to be a gallbladder related per gallbladder sonogram and hepatobiliary scan. She is being treated for acid reflux, so I must consider the possibilities including gastroparesis and she is a diabetic. 2. History of possible Von Willebrand's disease along with beta thalassemia. PLAN: We will see if GI wanted to do at least an EGD before we consider doing a gastric emptying ____. A1c now to assess diabetic control. MARITZA MCMILLAN MD DR: EVA/dean JOB#: [id number] / [id number]
[2017-04-28 11:00] VITALS: BP 113/71
--- NOTE | 2017-04-28 11:29 | PDOC ---
Subjective: Subjective: Pain better, tolerating clears, wants to eat more. Says Dr. Gonzalez told her labs would be resulted on or Mon next week. Objective: Objective: Reviewed other notes. D/w Dr. Coleman this morning - ?EGD Vital Signs: Vital Signs Date Time Temp Pulse Resp B/P (MAP) Pulse Ox O2 Delivery O2 Flow Rate FiO2 04/28/17 11:00 97.9 69 20 113/71 (85) 98 Room Air 97.9 Labs: Laboratory Tests Test 04/27/17 16:27 04/28/17 07:36 Glucose (Fingerstick) 191 mg/dL (70-99) 166 mg/dL (70-99) Imaging: HIDA 04/27/17 Impression: Normal exam. No evidence of cholecystitis is identified. Gallbladder ejection fraction is normal (>90%). PE: GEN: NAD LUNGS: CTAB HEART: RRR ABD: less tender NEURO/PSYCH: A & O 3 A/P: Chronic right-sided abd pain -post-prandial, some n/v, some radiation to epigastrium/chest/shoulder -worse during PIPIDA, no surg recs -h/o GERD on PPI, no previous EGD -no previous colonoscopy ?VWD -Dr. Gonzalez following, labs pending -- Await lab results prior to outpt EGD/colonoscopy. NISREEN CHAVEZ per primary. STEPHANIE RIVER Apr 28, 2017 11:29
[2017-04-28] MEDS ORDERED: metFORMIN 500 MG TABLET PO SCH (21:00)
[2017-04-28] MEDS ORDERED: INSULIN DETEMIR 300 UNITS/3 ML INSULN.PEN. SQ SCH ×2 (21:00→22:15)
[2017-05-02 08:27] LABS: HGB A 94.9 % (94.0-98.0); HGB A2 4.3 % (0.7-3.1); HGB ELECROPHORESIS COMMENT Note: (.)
== END 2017-04-28 14:45 | disposition home or self-care (01) | DRG 392 ==
LOC: ER 08:20 → 4 NORTH 11:18
PROVIDERS: ADMIT Family Medicine; ATTEND Family Medicine
DX: K21.9 Gastro-esophageal reflux disease without esophagitis (principal); R10.11 Right upper quadrant pain; D56.9 Thalassemia, unspecified; E11.9 Type 2 diabetes mellitus without complications; E78.5 Hyperlipidemia, unspecified; I10 Essential (primary) hypertension; M19.90 Unspecified osteoarthritis, unspecified site; R04.0 Epistaxis; Z80.0 Family history of malignant neoplasm of digestive organs; Z80.3 Family history of malignant neoplasm of breast; Z82.3 Family history of stroke; Z90.710 Acquired absence of both cervix and uterus; Z98.51 Tubal ligation status; Z88.1 Allergy status to other antibiotic agents; Z88.2 Allergy status to sulfonamides
CPT/HCPCS: 36415; 78226; 80053; 81001; 82728; 82962; 83020; 83036; 83540; 83550; 83690; 85007; 85027; 85045; 85610; 85730; 87086; 93005; 96374; 96375; A9537; J1815; J2405; J2765; J2805; J3010; J7030; 99285-25

== ENCOUNTER 2019-09-07 19:42 | Emergency (ER) | payer BC ==
[~2019-09-07] VITALS: Ht 152.4 cm; Wt 83.9 kg
[~2019-09-07 19:42] MED LIST changes: +MECL12.52 PO; -METF-620 PO; +METF10007 PO; +METF500T16 PO; -METF500T4 PO; +SIMV10TA15 PO; -SIMV10TA3 PO
[2019-09-07 20:46] LABS: BASO # 0.1 x10^3/uL (0.0-0.2); BASO % 1 % (0-3); EOS # 0.1 x10^3/uL (0.0-0.7); EOS % 1 % (0-3); HEMATOCRIT 29.2 % (36.0-47.0); HEMOGLOBIN 9.2 g/dL (12.0-15.5); LYMPH # 4.7 x10^3/uL (1.0-4.8); LYMPH % 43 % (24-48); MEAN CORPUSCULAR HEMOGLOBIN 20 pg (25-35); MEAN CORPUSCULAR HGB CONC 32 g/dL (31-37); MEAN CORPUSCULAR VOLUME 62 fL (79-100); MONO # 0.7 x10^3/uL (0.0-1.1); MONO % 6 % (0-9); NEUT # 5.5 x10^3/uL (1.8-7.7); NEUT % 50 % (31-73); PLATELET COUNT 273 x10^3/uL (140-400); RED CELL DISTRIBUTION WIDTH 15.3 % (11.5-14.5); WHITE BLOOD COUNT 11.1 x10^3/uL (4.0-11.0)
[2019-09-07] MEDS ORDERED: HYDR25SU18 RC (21:30)
--- NOTE | 2019-09-07 21:30 | PHYS DOC ---
Past Medical History Past Medical History: Anemia, Arthritis, Diabetes-Type II, Fibromyalgia Additional Past Medical Histor: MAP-DOT DYSTROPHY,ANDRES BRANDTS DX, THALASSEMIA, NEUROPATHY Past Surgical History: , Hysterectomy, Tubal ligation Additional Past Surgical Histo: LAPAROSCOPY Alcohol Use: None Drug Use: None Adult General Chief Complaint Chief Complaint: VAGINAL BLEEDING [facility] Patient is a 54 year old female, accompanied by her family, who presents to the emergency Department with concerns of vaginal bleeding. Patient states she had 4 episodes of diarrhea this morning, she denies any blood in her stool or recent constipation. Patient also denies any dysuria, increased urinary frequency, hematuria, fever, cough, shortness of breath, chest pain, palpitations, low back pain, or nausea. The patient states that when she went to the bathroom she noticed bright red blood on the toilet paper after wiping. Then a feq hours later she noticed some bloody discharge in her underwear. She states that she had a total hysterectomy in 2009 and has not had any vaginal bleeding since then. She denies any recent vaginal trauma. She currently denies any pain. All other ROS is neg unless otherwise noted in HPI. Review of Systems Review of Systems See Above Allergies Allergies Allergies Coded Allergies Type Severity Reaction Last Updated Verified Sulfa (Sulfonamide Antibiotics) Allergy Unknown "i get hives and throat swells shut" 01/20/14 Yes amoxicillin Allergy Unknown n/v 01/20/14 Yes clavulanic acid Allergy Unknown n/v 01/20/14 Yes Uncoded Allergies Type Severity Reaction Last Updated Verified WASP Allergy Mild 01/20/14 Physical Exam Physical Exam See Above Constitutional: Well developed, well nourished, no acute distress, non-toxic appearance, obese. [] HENT: Normocephalic, atraumatic, bilateral external ears normal, nose normal. [] Eyes: PERRLA, EOMI, conjunctiva normal, no discharge. [] Neck: Normal range of motion, no stridor. [] Cardiovascular:Heart rate regular rhythm Lungs & Thorax: Bilateral breath sounds clear to auscultation [] Pelvic Exam: Hydrate Thickener Operator present Abdomen: Nontender, soft External Genitalia: Normal Skin Speculum: Normal vaginal mucosa, no cervix Bimanual: deferred Rectal Exam: Normal tone, No mass, Positive control, visible external hemorrhoids without enlargement, palpable internal hemorrhoid at 3 o'clock Stool: Brown Skin: Warm, dry, no erythema, no rash. [] Extremities: No cyanosis, ROM intact Neurologic: Alert and oriented X 3, no focal deficits noted. [] Psychologic: Affect normal, judgement normal, mood normal. [] Current Patient Data Vital Signs Vital Signs Date Time Temp Pulse Resp B/P (MAP) Pulse Ox O2 Delivery O2 Flow Rate FiO2 09/07/19 21:39 92 18 117/66 (83) 97 Room Air 09/07/19 20:00 98.5 98.5 Lab Values Laboratory Tests Test 09/07/19 20:07 White Blood Count 11.1 x10^3/uL (4.0-11.0) H Red Blood Count 4.70 x10^6/uL (3.50-5.40) Hemoglobin 9.2 g/dL (12.0-15.5) L Hematocrit 29.2 % (36.0-47.0) L Mean Corpuscular Volume 62 fL (79-100) L Mean Corpuscular Hemoglobin 20 pg (25-35) L Mean Corpuscular Hemoglobin Concent 32 g/dL (31-37) Red Cell Distribution Width 15.3 % (11.5-14.5) H Platelet Count 273 x10^3/uL (140-400) Neutrophils (%) (Auto) 50 % (31-73) Lymphocytes (%) (Auto) 43 % (24-48) Monocytes (%) (Auto) 6 % (0-9) Eosinophils (%) (Auto) 1 % (0-3) Basophils (%) (Auto) 1 % (0-3) Neutrophils # (Auto) 5.5 x10^3/uL (1.8-7.7) Lymphocytes # (Auto) 4.7 x10^3/uL (1.0-4.8) Monocytes # (Auto) 0.7 x10^3/uL (0.0-1.1) Eosinophils # (Auto) 0.1 x10^3/uL (0.0-0.7) Basophils # (Auto) 0.1 x10^3/uL (0.0-0.2) Platelet Estimate Adequate (ADEQUATE) Polychromasia Slight Hypochromasia Marked Basophilic Stippling Present Microcytosis Marked Spherocytes Occ Tear Drop Cells Few Ovalocytes Mod Schistocytes Occ Laboratory Tests 09/07/19 20:07 EKG EKG [] Radiology/Procedures Radiology/Procedures [] Course & Med Decision Making Course & Med Decision Making Pertinent Labs and Imaging studies reviewed. (See chart for details) Patient is a 54-year-old female who presented to the emergency room with concerns of vaginal bleeding. Patient reported having blood on the toilet tissue after urinating. It and then a small amount of blood on her underwear. Patient reported that she had 4 episodes of diarrhea prior to the onset of the bleeding. Pelvic exam was performed that found no blood present in the vaginal vault, however on rectal exam there was a palpable internal hemorrhoid, and visible external hemorrhoids. Advised the patient that the blood is likely related to the findings of a hemorrhoids, as there is no blood in the vaginal vault. CBC revealed a hemoglobin of 9.2, hematocrit 29.2, white blood cell count of 11.1. Patient has a history of anemia, she denies any fatigue, weakness, dizziness, or shortness of breath. VSS. She was encouraged follow-up with her primary care doctor next week for recheck of her anemia. Recommended that the patient uses s tool softeners as needed to prevent constipation, prescription written for Anusol HC suppositories. Pt verbalized an understanding of home care, medications, follow-up, and return to ED instructions and was in agreement with the plan of care. [] Dragon Disclaimer Dragon Disclaimer This electronic medical record was generated, in whole or in part, using a voice recognition dictation system. Departure Departure Impression: Primary Impression: Hemorrhoids, internal, with bleeding Disposition: HOME, SELF-CARE Condition: STABLE Referrals: [facility] MERCAD[facility] (PCP) Patient Instructions: Hemorrhoids, [id number] Additional Instructions: Recommend that you take stool softeners for the next few days, increase clear fluids, fill the prescription take it as directed. Follow-up with your primary care doctor next week, return to the ER if symptoms worsen. Scripts Hydrocortisone Acetate (ANUSOL-HC) 25 Mg Supp.rect 1 SUPP RC BID PRN for RECTAL PAIN for 14 Days, #28 SUPP 0 Refills Prov: RAJENDRA FERNANDEZ [employer] 09/07/19 RAJENDRA FERNANDEZ [employer] Sep 07, 2019 21:30
[2019-09-07 21:39] VITALS: BP 117/66
[2019-09-07 21:50] LABS: HYPOCHROMIA MARKED; MICROCYTOSIS MARKED; OVALOCYTES MOD; PLT ESTIMATE ADEQUATE (ADEQUATE); TEAR DROP CELLS FEW
[2019-09-07 21:51] LABS: POLYCHROMASIA SLIGHT
[2019-09-07 21:52] LABS: SCHISTOCYTES OCC; SPHEROCYTES OCC
== END 2019-09-07 21:41 | disposition home or self-care (01) ==
LOC: ER 19:42
DX: K64.8 Other hemorrhoids (principal); K64.4 Residual hemorrhoidal skin tags; E11.40 Type 2 diabetes mellitus with diabetic neuropathy, unspecified; Z90.710 Acquired absence of both cervix and uterus; Z98.51 Tubal ligation status; Z88.1 Allergy status to other antibiotic agents; Z88.2 Allergy status to sulfonamides; Z91.030 Bee allergy status
CPT/HCPCS: 36415; 85025; 99284